=== PATIENT | female | born 1985 | race Caucasian/White ===

== ENCOUNTER 2016-12-16 07:37 | Inpatient (IN) | payer BC ==
[~2016-12-16] VITALS: Ht 157.5 cm; Wt 63.6 kg
[2016-12-16] MEDS ORDERED: LACTATED RINGER'S 1,000 ML IV SCH (07:43)
[2016-12-16 07:58] VITALS: BP 113/66; PULSE 76; RESP 16; Ht 157.5 cm; Wt 63.6 kg
[2016-12-16] MEDS ORDERED: OXYTOCIN 30 UNITS/LR 500 ML IV SCH (08:00)
[2016-12-16] MEDS ORDERED: OXYTOCIN 30 UNITS/LR 500 ML IV PRN ×2 (08:00→11:30)
[2016-12-16] MEDS ORDERED: CEFAZOLIN 2 GM/50 ML (PMX) 50 ML IV SCH ×2 (08:00→11:30)
[2016-12-16] MEDS ORDERED: METHYLERGONOVINE 0.2 MG INJ IM PRN ×2 (08:00→11:30)
[2016-12-16] MEDS ORDERED: MISOPROSTOL 200 MCG TAB PR PRN ×2 (08:00→11:30)
[2016-12-16] MEDS ORDERED: CARBOPROST 250 MCG INJ IM PRN ×2 (08:00→11:30)
[2016-12-16 09:01] LABS: BASOPHILS % 0.3 % (0.0-2.0); EOSINOPHILS # 0.1 10^3/ul (0.0-0.5); EOSINOPHILS % 1.2 % (0.0-7.0); HEMATOCRIT 39.1 % (37.0-47.0); HEMOGLOBIN 13.6 g/dl (12.0-16.0); LYMPHOCYTES # 2.8 10^3/ul (0.8-2.9); LYMPHOCYTES % 23.2 % (15.0-51.0); MEAN CORPUSCULAR HEMOGLOBIN 31.9 pg (29.0-33.0); MEAN CORPUSCULAR HGB CONC 34.8 g/dl (32.0-37.0); MEAN CORPUSCULAR VOLUME 91.6 fl (82.0-101.0); MEAN PLATELET VOLUME 10.6 fl (7.4-10.4); MONOCYTE # 0.8 10^3/ul (0.3-0.9); MONOCYTES % 6.3 % (0.0-11.0); NEUTROPHILS % 67.7 % (39.0-77.0); PLATELET COUNT 217 10^3/UL (140-415); RED BLOOD COUNT 4.27 10^6/ul (4.20-5.40); RED CELL DISTRIBUTION WIDTH 12.4 % (11.5-14.5); WHITE BLOOD COUNT 11.9 10^3/ul (4.8-10.8)
[2016-12-16] MEDS ORDERED: morphine SULFATE/PF (10 MG/10 ML) INJ ONE (09:04)
[2016-12-16] MEDS ORDERED: FENTAnyl 50 MCG/ML VIAL ONE (09:04)
[2016-12-16 09:14] LABS: INR 0.92; PROTIME 12.4 Sec (12.2-14.2)
[2016-12-16 09:15] LABS: PARTIAL THROMBOPLASTIN TIME 26.4 Sec (25.0-35.0)
[2016-12-16] MEDS ORDERED: KETOROLAC 30 MG INJ IV PRN ×2 (09:50→12:00)
--- NOTE | 2016-12-16 09:50 | DELSUM ---
Delivery Summary A-C Datetime Report Generated by CPN: 12/16/2016 09:50 DELIVERY PERSONNEL Helicopter Pilot: Muñoz, Wenbing MATERNAL INFORMATION Delivery Anesthesia: Spinal Medications in Delivery: see anesthesia Placenta Cultured: No Maternal Complications: None LABOR SUMMARY EDC: 12/19/2016 00:00 No. Babies in Womb: 1 No. Babies in Womb: 1 Attempted: No Labor Anesthesia: None LABOR INFORMATION Reason for Induction: Not Applicable Oxytocin: N/A Group B Beta Strep: Done, Result Unknown Antibiotics # of Doses: 1 Steroids Given: None Reason Steroids Not Administered: Not Applicable CSECTION DELIVERY Primary Indication: Repeat Elective Secondary Indication: Other Other Secondary Indication: bilateral tubal ligation CSection Urgency: Non Elective CSection Incidence: Repeat Labor: No Labor Elective: Nonelective CSection Incision: Lower Uterine Transverse Sterilization Procedure: [place] BABY A INFORMATION Method of Delivery: Born in Route : No : N/A Forceps: N/A Vacuum Extraction: N/A Shoulder Dystocia : N/A PRESENTATION/POSITION BABY A Presentation: Cephalic Cephalic Presentation: Vertex Breech Presentation: N/A INFANT INFORMATION BABY A Gestational Age at Delivery: 39.4 Gestational Status: Full Term- 39- 40.6 Weeks Infant Outcome : Liveborn IDENTIFICATION/MEDS BABY A ID Band Number: [id number] Sensor Number: [id number]
[2016-12-16] MEDS ORDERED: PHENYLephrine (100 MCG/ML) 5ML SYG ONE (09:55)
[2016-12-16] MEDS ORDERED: DEXAMETHASONE 4 MG/ML 1 ML INJ ONE (10:05)
[2016-12-16] MEDS ORDERED: ONDANSETRON 4 MG INJ ONE (10:06)
[2016-12-16] MEDS ORDERED: MIDAZOLAM 1 MG/ML 2 ML INJ ONE (10:26)
[2016-12-16] MEDS ORDERED: MEPERIDINE 100 MG INJ ONE (10:48)
[2016-12-16] MEDS ORDERED: OXYTOCIN 30 UNITS/LR 500 ML IV ONE (10:54)
[2016-12-16] MEDS ORDERED: HYDROCODONE/APAP (5/325) TAB PO PRN ×2 (11:30)
[2016-12-16] MEDS ORDERED: NA PHOSPHATE/BIPHOS 133 ML ENEMA PR PRN (11:30)
[2016-12-16] MEDS ORDERED: METHYLERGONOVINE 0.2 MG TAB PO PRN (11:30)
[2016-12-16] MEDS ORDERED: LANOLIN 7 GM TUBE TOP PRN (11:30)
--- NOTE | 2016-12-16 11:33 | DELSUM ---
Delivery Summary A-C Datetime Report Generated by CPN: 12/16/2016 11:33 DELIVERY PERSONNEL Track Leader: Muñoz, Wenbing MATERNAL INFORMATION Delivery Anesthesia: Spinal Medications in Delivery: see anesthesia Estimated Blood Loss (ml): 500 Placenta Cultured: No Maternal Complications: None LABOR SUMMARY EDC: 12/19/2016 00:00 No. Babies in Womb: 1 No. Babies in Womb: 1 Attempted: No Labor Anesthesia: None LABOR INFORMATION Reason for Induction: Not Applicable Oxytocin: N/A Group B Beta Strep: Done, Result Unknown Antibiotics # of Doses: 1 Steroids Given: None Reason Steroids Not Administered: Not Applicable MEMBRANES Membranes Rupture Method: Artificial Rupture of Membranes: 12/16/2016 10:25 Length of Rupture (hr): 0.03 Amniotic Fluid Color: Clear Amniotic Fluid Amount: Moderate Amniotic Fluid Odor: None STAGES OF LABOR Stage 3 hr: 0 Stage 3 min: 0 CSECTION DELIVERY Primary Indication: Repeat Elective Secondary Indication: Other Other Secondary Indication: bilateral tubal ligation CSection Urgency: Non Elective CSection Incidence: Repeat Labor: No Labor Elective: Nonelective CSection Incision: Lower Uterine Transverse Sterilization Procedure: Shyla BABY A INFORMATION Infant Delivery Date/Time: 12/16/2016 10:27 Method of Delivery: Born in Route : No : N/A Forceps: N/A Vacuum Extraction: Successful Shoulder Dystocia : N/A ASSISTED DELIVERY BABY A Catheter Prior to Procedure: Yes Position Vacuum/Forcep Apply: Left Occipital Anterior Vacuum Number of Pulls: 1 Vacuum Number of PopOffs: 0 Vacuum Maximum Pressure Obtained: 25 Vacuum Pourer: [employer] Total Time Vacuum Applied: 5 SEC SHOULDER DYSTOCIA BABY A Infant Delivery Date/Time: 12/16/2016 10:27 PRESENTATION/POSITION BABY A Presentation: Cephalic Cephalic Presentation: Vertex Vertex Position: Left Occipital Anterior Breech Presentation: N/A PLACENTA INFORMATION BABY A Placenta Delivery Time : 12/16/2016 10:27 Placenta Method of Delivery: Manual Removal Placenta Status: Delivered SCORES BABY A Heart Rate 1 min: >100 bpm Resp Effort 1 min: Good Cry Reflex Irritability 1 min: Cough/Sneeze/Pulls Away Muscle Tone 1 min: Active Motion Color 1 min: Body Metter, Extremit Blue Resuscitation Effort 1 min: Tactile Stimulation SCORE 1 MIN: 9 Heart Rate 5 min: >100 bpm Resp Effort 5 min: Good Cry Reflex Irritability 5 min: Cough/Sneeze/Pulls Away Muscle Tone 5 min: Active Motion Color 5 min: Body Metter, Extremit Blue Resuscitation Effort 5 min: Tactile Stimulation SCORE 5 MIN: 9 INFORMATION BABY A Gestational Age at Delivery: 39.4 Gestational Status: Full Term- 39- 40.6 Weeks Outcome : Liveborn Infant Condition : Stable Infant Sex: Female IDENTIFICATION/MEDS BABY A ID Band Number: [id number] Sensor Number: [id number] WEIGHT/LENGTH BABY A Birthweight (gm): 3535 Weight (lb): 7 Infant Weight (oz): 13 Length (in): 19.50 Length (cm): 49.53 CORD INFORMATION BABY A No. Cord Vessels: 3 Nuchal Cord : N/A Cord Blood Taken: Yes Suction: Mouth; Nose ASSESSMENT BABY A Infant Complications: None Physical Findings at Delivery: Within Normal Limits Respirations: Appears Normal Upkeep Worker/ALS Called : No Infant Care By: RT/LETTY RNC Transferred To: Remains with Mother
--- NOTE | 2016-12-16 11:47 | OPR ---
Date/Time of Note Date/Time of Note DATE: 12/16/16 TIME: 11:44 Operative Report Procedure Date: Dec 16, 2016 Preoperative Diagnosis Term previous section and multiparity. umbilical hernia Postoperative Diagnosis Same plus baby girl 9 Operation Performed Repeat low segment transverse , bilateral salpingectomy and umbilical hernia repair Surgeon see signature line Customer Services Manager: ERIC TORO MD Anesthesia Type: spinal Anesthesiologist: DONTRELL BRAMBILA Estimated Blood Loss: other Transfusion Required: no Specimens Placenta Grafts/Implants: none Complications: no Pt Condition Post Procedure: stable Disposition: PACU DHARMESH SIMONS MD Dec 16, 2016 11:47
[2016-12-16] MEDS ORDERED: KETOROLAC 30 MG INJ IV SCH (12:00)
[2016-12-16] MEDS ORDERED: DIPHENHYDRAMINE 50 MG INJ IV PRN (12:00)
[2016-12-16] MEDS ORDERED: ONDANSETRON 4 MG INJ IV PRN (12:00)
[2016-12-16] MEDS ORDERED: NALOXONE (0.4 MG/ML) INJ IV PRN ×2 (12:00→22:45)
[2016-12-16] MEDS ORDERED: ZOLPIDEM 5 MG TAB PO PRN ×2 (12:00→22:45)
[2016-12-16] MEDS ORDERED: HYDROmorphONE 1 MG/ML SYG IV PRN ×2 (12:00)
[2016-12-16] MEDS: LACTATED RINGER'S 1,000 ML IV SCH ×2 (12:27→19:26)
--- NOTE | 2016-12-16 13:46 | OPR ---
DATE OF OPERATION: 12/16/2016 PREOPERATIVE DIAGNOSES: 1. Term , previous section x2. 2. Multiparity. 3. Large umbilical hernia. POSTOPERATIVE DIAGNOSES: 1. Term , previous section x2. 2. Multiparity. 3. Large umbilical hernia. OPERATIONS PERFORMED: 1. Repeat low segment transverse section. 2. Bilateral salpingectomy. 3. Umbilical hernia repair. SURGEON: Clau Moura MD PE MANAGER: Hossein Salazar MD ANESTHESIOLOGIST: Al Dudley MD OPERATIVE PROCEDURE: The patient was given spinal anesthesia, placed in the supine position. The abdomen was prepped and draped and a Patel catheter had been placed in the bladder. An elliptical incision was made around the previous old scar. The scar was removed. The abdomen was opened in layers without difficulty. The abdominal cavity was reached. The lower segment of the uterus was identified and the bladder flap was made. The uterus was opened in the midline with a scalpel and the incision was increased laterally for about 3 inches in each side. The amniotic fluid was clear. The baby was large and it was delivered with the help of a vacuum. The cord was around the neck. The baby was handed over to the weights and measures sealer team after the cord was clamped and cut and the baby's was good, and it was a baby girl, 9. The cord blood was obtained. The placenta was removed. The cervix was opened with a ring forceps. The uterus was cleaned out and closed in layers using number 1 Monocryl continuous suture imbricating the first line of suture and hemostasis was good. Hemostasis was also achieved with interrupted sutures with 0 MH stitches chromic. The right tube was held and a Pean was passed underneath all the way of its length and the tube was excised and double stitches with 2-0 Vicryl sutures were applied to the uterus for hemostasis. This was done with good hemostasis. The same thing was done on the other side. Both tubes were removed. The ovaries were normal. The uterus was hypertrophic with possibility of early fibroid. The abdominal cavity was cleaned out. The umbilical hernia that was large, about 5 cm, was localized from the peritoneal area and stitches with number 1 Prolene were placed from one side to the other side on a length of about 5 cm vertical, the stitches were placed vertically and tied snugly to each other and the rent of the umbilical area was closed. These are permanent stitches. The patient had this repair done before. The procedure was finished by removing all the instruments. The peritoneum was closed with a 2-0 Vicryl suture. The fascia was closed with a number 0 PDS loop suture, 2-0 Vicryl for subcutaneous tissue, 3-0 Monocryl subcuticular to the skin. Steri-Strips and Dermabond were applied. The patient tolerated the procedure well and left the OR awake and stable. Sponge counts and instrument counts were correct. Intravenous antibiotics were given for prophylaxis. Blood loss was about 500 mL. The urine was clear at the end of the procedure. Dictated By: Clau Moura MD /sravani/morteza /Document#: [id number]
[2016-12-16 14:00] VITALS: BP 114/79; PULSE 76; RESP 17
[2016-12-16] MEDS ORDERED: IBUPROFEN 800 MG TAB PO SCH (14:00)
[2016-12-16 16:00] VITALS: BP 104/62; PULSE 57; RESP 18
[2016-12-16] MEDS: OXYTOCIN 30 UNITS/LR 500 ML IV SCH ×2 (16:22→21:31)
[2016-12-16 19:45] VITALS: BP 102/57; PULSE 59; RESP 18
[2016-12-16] MEDS: SENNA/DOCUSATE NA (8.6MG/50MG) TAB PO SCH (21:26)
[2016-12-17] VITALS: BP 105/55; PULSE 62; RESP 17
[2016-12-17] MEDS: LACTATED RINGER'S 1,000 ML IV SCH (02:01)
[2016-12-17] MEDS: CEFAZOLIN 2 GM/50 ML (PMX) 50 ML IVPB SCH ×2 (03:11→10:08)
[2016-12-17 04:00] VITALS: BP 98/58; PULSE 60; RESP 18
[2016-12-17 08:00] VITALS: BP 92/54; PULSE 63; RESP 17
[2016-12-17 08:15] LABS: BASOPHILS % 0.2 % (0.0-2.0); EOSINOPHILS % 0.3 % (0.0-7.0); HEMATOCRIT 35.3 % (37.0-47.0); HEMOGLOBIN 12.4 g/dl (12.0-16.0); LYMPHOCYTES # 2.4 10^3/ul (0.8-2.9); LYMPHOCYTES % 18.4 % (15.0-51.0); MEAN CORPUSCULAR HGB CONC 35.1 g/dl (32.0-37.0); MEAN CORPUSCULAR VOLUME 91.2 fl (82.0-101.0); MEAN PLATELET VOLUME 10.6 fl (7.4-10.4); MONOCYTE # 1.1 10^3/ul (0.3-0.9); MONOCYTES % 8.2 % (0.0-11.0); NEUTROPHIL # 9.6 10^3/ul (1.6-7.5); NEUTROPHILS % 72.4 % (39.0-77.0); PLATELET COUNT 177 10^3/UL (140-415); RED BLOOD COUNT 3.87 10^6/ul (4.20-5.40); RED CELL DISTRIBUTION WIDTH 12.3 % (11.5-14.5); WHITE BLOOD COUNT 13.3 10^3/ul (4.8-10.8)
--- NOTE | 2016-12-17 09:20 | PREOPHP ---
DATE OF ADMISSION: 12/16/2016 07:37 12/16/2016 REASON FOR ADMISSION: This patient is having a repeat section and tubal ligation. HISTORY OF PRESENT ILLNESS: This is a 31-year-old female, 4, para 2, abortions 1, EDC of 12/19/2016. This patient has no history of allergies, no history of drug addiction or smoking or alcohol. She had 2 previous sections and a D and C and otherwise she has been healthy. The patient had care with me in the office since 8 weeks of . She had a normal development of the with 21 pounds of weight gain. She had no complications. No diabetes. No anemia. No problems. She had all her testing done and they all were negative for any diseases. She had an amniocentesis also that revealed that she had a normal baby girl. She previously had a girl, then a boy, and now a girl again by cell-free DNA. The patient at the beginning of the had low placenta with a hematoma and then everything went back to normal. She had signed for a tubal ligation and she also was giving the option of salpingectomy versus partial salpingectomy with pros and cons of either procedure, and she decided for total salpingectomy with no possibility of reconstruction and better chances to not have ovarian cancer and not to have ectopic pregnancies. FAMILY HISTORY: Diabetes and colon cancer. PHYSICAL EXAMINATION: VITAL SIGNS: Stable. She is 5 feet 3 inches. She weighs 141 pounds. Her blood pressure is 100/70. Pulse is 80. Respirations 16. HEENT: Normal. NECK: Normal. HEART: Normal sinus rhythm. CHEST: Clear. LUNGS: Clear. BREASTS: Soft, nontender. No masses. ABDOMEN: Soft. Uterus at 10 with normal heart tones. No contractions. Pelvic examination with no changes. Cephalic presentation, -2. Membranes intact. No effacement. IMPRESSION AND PLAN: Term , previous section x2. She is undergoing a repeat section and she has been advised of the possible risks and the possible complications of the procedure. With her [____] and options, written information was provided. She had no more questions and agreed to go ahead with the procedure with full understanding and no more questions. The patient will undergo a repeat section and bilateral salpingectomy. Dictated By: Clau Moura MD /sravani/therese /Document#: [id number]
[2016-12-17] MEDS: SENNA/DOCUSATE NA (8.6MG/50MG) TAB PO SCH ×2 (10:08→21:00)
--- NOTE | 2016-12-17 11:11 | PN ---
Date/Time of Note Date/Time of Note DATE: 12/17/16 TIME: 11:09 Assessment/Plan Lines/Catheters IV Catheter Type (from Nrsg): Peripheral IV Subjective 24 Hr Interval Summary feels good not in pain uterus contracted lochia normal incision dry Constitutional: BM, ambulates, flatus, improved, no complaints, urine output Feeding: advancing diet Pain Control: mild Detailed Summary Eyes: no complaints ENT: no complaints Respiratory: no complaints Cardiovascular: no complaints Gastrointestinal: no complaints Genitourinary: no complaints Musculoskeletal: no complaints Skin: no complaints Neurologic: no complaints Endocrine: no complaints Lymphatic: no complaints Psychological: nl mood/affect, no complaints Immunologic: no complaints Exam/Review of Systems Vital Signs Vitals Vital Signs Date Time Temp Pulse Resp B/P Pulse Ox O2 Delivery O2 Flow Rate FiO2 12/17/16 10:30 96 21 12/17/16 08:00 97.8 63 17 92/54 Room Air Intake and Output 12/16/16 12/16/16 12/17/16 15:00 23:00 07:00 Intake Total 1000 ml 1550 ml 1600 ml Output Total 1350 ml 900 ml 1500 ml Balance -350 ml 650 ml 100 ml Exam Constitutional: alert, oriented, well developed Psych: nl mood/affect, no complaints Head: atraumatic, normocephalic Eyes: EOMI, nl conjunctiva, nl lids, nl sclera ENMT: mucosa pink and moist, nl external ears & nose, nl lips & teeth, nl nasal mucosa & septum Neck: non-tender, supple Respiratory: clear to auscultation, normal air movement Cardiovascular: nl pulses, regular rate and rhythm Gastrointestinal: nl liver, spleen, non-tender, soft Musculoskeletal: nl extremities to inspection, nl gait and stance Extremities: normal pulses Neurological: MECHANICAL OXIDIZER II-XII intact, nl mental status, nl speech, nl strength Skin: nl turgor, rash or lesions Lymph: nl lymph nodes Results Result Diagram: 12/17/16 0759 DHARMESH SIMONS MD Dec 17, 2016 11:11
[2016-12-17] MEDS ORDERED: BISACODYL (EC) 5 MG TAB PO ONE (11:30)
[2016-12-17] MEDS: KETOROLAC 30 MG INJ IV SCH ×2 (12:19→17:58)
[2016-12-17 16:10] VITALS: BP 102/62; PULSE 86; RESP 18
[2016-12-17 20:00] VITALS: BP 117/69; PULSE 80; RESP 18
[2016-12-18] MEDS: HYDROCODONE/APAP (5/325) TAB PO PRN ×4 (00:42→17:20)
[2016-12-18 04:00] VITALS: BP 103/68; PULSE 69; RESP 18
[2016-12-18 06:35] LABS: BASOPHILS % 0.3 % (0.0-2.0); EOSINOPHILS # 0.1 10^3/ul (0.0-0.5); EOSINOPHILS % 1.2 % (0.0-7.0); HEMATOCRIT 35.2 % (37.0-47.0); HEMOGLOBIN 11.7 g/dl (12.0-16.0); LYMPHOCYTES # 2.6 10^3/ul (0.8-2.9); LYMPHOCYTES % 23.8 % (15.0-51.0); MEAN CORPUSCULAR HEMOGLOBIN 31.3 pg (29.0-33.0); MEAN CORPUSCULAR HGB CONC 33.2 g/dl (32.0-37.0); MEAN CORPUSCULAR VOLUME 94.1 fl (82.0-101.0); MONOCYTES % 9.3 % (0.0-11.0); NEUTROPHIL # 6.9 10^3/ul (1.6-7.5); NEUTROPHILS % 64.5 % (39.0-77.0); PLATELET COUNT 199 10^3/UL (140-415); RED BLOOD COUNT 3.74 10^6/ul (4.20-5.40); RED CELL DISTRIBUTION WIDTH 12.9 % (11.5-14.5); WHITE BLOOD COUNT 10.7 10^3/ul (4.8-10.8)
[2016-12-18 07:20] VITALS: BP 115/71; PULSE 66; RESP 19
[2016-12-18] MEDS: SENNA/DOCUSATE NA (8.6MG/50MG) TAB PO SCH ×2 (09:00→21:17)
--- NOTE | 2016-12-18 11:29 | QN ---
Documentation Comment POD #2 s/p repeat and BTL. Pt feels well although reports the right hurts a little more than the left side of the incision. with assist.+flatus. T=97.6 BP 115/71 Incision clean, dry and intact. ext NT, no edema. WBC 10.7 Hgb 11.7 Plts 199K. P: Continue care. Plan D/C tomorrow. DHRUV REID MD Dec 18, 2016 11:29
[2016-12-18 15:55] VITALS: BP 113/69; PULSE 76; RESP 19
[2016-12-18 20:10] VITALS: BP 108/60; PULSE 75; RESP 18
[2016-12-19] MEDS: HYDROCODONE/APAP (5/325) TAB PO PRN ×2 (00:22→11:35)
[2016-12-19 03:55] VITALS: BP 100/70; PULSE 70; RESP 18
[2016-12-19 07:25] VITALS: BP 110/73; PULSE 62; RESP 19
--- NOTE | 2016-12-19 08:04 | PD.PPDC ---
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 Instruction Condition Patient Condition: Good Diet Diet: Resume Regular Diet Activity/Restrictions Activity: Bedrest May be up to bathroom May be up for meals May Shower Restrictions: No Exercising No Lifting No Driving Minimize Walking Minimize Stair-climbing No Sexual Activity Nothing in the Vagina No [place] No Tampons, douche Wound/Drain Care Instructions Wound/Drain Care Instructions: Remove Steri Strips in 2 weeks Follow-up Follow-up with Physician: 2, Week/Weeks Return to clinic for SLEEVE FIXER Instructions: Fever greater than 101 Chills Worsening abdominal pain Excessive Vaginal Bleeding OB Instructions: Breast Tenderness Depression Surgical Instructions: Incisional Drainage Incisional Redness DHRUV REID MD Dec 19, 2016 08:04
--- NOTE | 2016-12-19 08:06 | DS ---
Date/Time of Note Date/Time of Note DATE: 12/19/16 TIME: 08:04 Obstetrical Discharge Record Final Diagnosis Final Diagnosis: Term delivered Vaginal Delivery Obstetrical Delivery: Bilateral Tubal Ligation Section Section: Repeat Complications Augmentation: No Induction: No Condition on Discharge Physical Assessment Last Vitals: T=98.6 BP 100/70 Voiding: Yes Bowel Movement: Yes Breast: Filling Fundus: Firm Abdomen and Incision: Incision C/D/I. Calf Tenderness: No Patient Condition: Good DHRUV REID MD Dec 19, 2016 08:06
[2016-12-19] MEDS: SENNA/DOCUSATE NA (8.6MG/50MG) TAB PO SCH (08:43)
[2016-12-19] MEDS ORDERED: DIPHTH/TET/ACEL PERTUSS (ADULT) 0.5 ML VIAL IM* ONE (09:00)
[2016-12-19] MEDS ORDERED: MEASLES,MUMPS,RUBELLA VACCINE INJ SC* ONE (09:00)
[2016-12-20] MEDS ORDERED: IBUPROFEN 800 MG TAB PO SCH (14:00)
== END 2016-12-19 12:15 | disposition home or self-care (01) | DRG 766 ==
LOC: L-D 07:37 → PP1 15:08
PROVIDERS: ADMIT Obstetrics & Gynecology; ATTEND Obstetrics & Gynecology
PROC: 0UT70ZZ Resection of Bilateral Fallopian Tubes, Open Approach (ICD-10-PCS; 2016-12-16)
PROC: 3E033VJ Introduction of Other Hormone into Peripheral Vein, Percutaneous Approach (ICD-10-PCS; 2016-12-16)
PROC: 10D00Z1 Extraction of Products of Conception, Low, Open Approach (ICD-10-PCS; principal; 2016-12-16 09:00)
DX: O34.211 Maternal care for low transverse scar from previous cesarean delivery (principal); Z30.2 Encounter for sterilization; Z37.0 Single live birth; Z3A.39 39 weeks gestation of pregnancy
CPT/HCPCS: 85025; 85610; 85730; 86592; 86850; 86900; 86901; 87340; 88302; 90715; 94760; 99464; J0690; J1100; J1200; J1885; J2175; J2250; J2274; J2370; J2405; J2590; J3010; J7120